=== PATIENT | male | born 1955 | race Caucasian/White ===

== ENCOUNTER → 2019-03-07 14:07 | Outpatient (CLI) | payer MEDICARE ==
[2018-06-10 13:38] VITALS: BMI 47.5
[~2019-03-07 14:07] MED LIST: AMBIEN10 MG PO; CARAFATE1 G PO; GLUCOPHAGE1000 MG PO; HYDROCODON-ACE1 EAC2 PO; K-TAB10 MEQ PO; KLONOPIN1 MG PO; LASIX40 MG PO; MOBIC7.5 MG PO; PIOGLITAZONE15 MG PO; PROTONIX40 MG PO; SYNTHROID200 MC1 PO; TOPROL XL50 MG PO; ZANAFLEX4 MG PO; ZESTRIL10 MG PO; ZOCOR40 MG PO; ZOLOFT100 MG PO; ZYLOPRIM100 MG PO
== END | disposition home or self-care (01) ==
LOC: D.HCCECHO 14:07
PROVIDERS: ATTEND Internal Medicine Cardiovascular Disease
DX: I10 Essential (primary) hypertension (principal)